=== PATIENT | male | born 1965 | race Caucasian/White ===

== ENCOUNTER 2017-02-01 13:43 | Emergency (ER) | payer BC ==
[~2017-02-01] VITALS: Ht 170.2 cm; Wt 85.3 kg
[2017-02-01 14:43] LABS: CALCIUM 9.1 mg/dL (8.5-10.1); CARBON DIOXIDE 30.8 mmol/L (21-32); CHLORIDE SERUM 100 mmol/L (98-107); GFR1 > 60 mL/min; GLUCOSE SERUM 99 mg/dL (74-106); POTASSIUM SERUM 4.5 mmol/L (3.5-5.1); SODIUM SERUM 136 mmol/L (136-145)
[2017-02-01 14:47] LABS: ALKALINE PHOSPHATASE 73 U/L (46-116); ALT/SGPT 41 U/L (16-63); AST/SGOT 17 U/L (15-37); BILIRUBIN TOTAL 0.9 mg/dL (0.20-1.00); LIPASE 122 IU/L (73-393); TOTAL PROTEIN, SERUM 7.9 g/dL (6.4-8.2)
[2017-02-01 14:58] LABS: BASOPHIL % 0.3 % (0-2); PLATELET COUNT 190 x10^3mcL (130-400); RED CELL DISTRIBUTION WIDTH 13.9 % (11.5-14.5)
[2017-02-01 15:55] VITALS: BP 129/95
== END 2017-02-01 15:55 | disposition home or self-care (01) ==
LOC: ED 13:43
PROVIDERS: Emergency Medicine
DX: K57.90 Diverticulosis of intestine, part unspecified, without perforation or abscess without bleeding (principal); I10 Essential (primary) hypertension
CPT/HCPCS: 36415

== ENCOUNTER 2019-12-21 17:51 | Emergency (ER) | payer BC ==
[~2019-12-21] VITALS: Ht 172.7 cm; Wt 90.3 kg
[2019-12-21 18:02] VITALS: Ht 172.7 cm; Wt 90.3 kg
[2019-12-21 18:48] LABS: CALCIUM 8.8 mg/dL (8.5-10.1); CARBON DIOXIDE 28.4 mmol/L (21-32); CHLORIDE SERUM 105 mmol/L (98-107); GFR1 > 60 mL/min; GLUCOSE SERUM 133 mg/dL (74-106); POTASSIUM SERUM 3.9 mmol/L (3.5-5.1); SODIUM SERUM 135 mmol/L (136-145)
[2019-12-21 18:53] LABS: ALBUMIN 3.9 g/dL (3.4-5.0); ALKALINE PHOSPHATASE 77 U/L (46-116); ALT/SGPT 49 U/L (16-63); BILIRUBIN TOTAL 0.55 mg/dL (0.20-1.00); LIPASE 117 IU/L (73-393); TOTAL PROTEIN, SERUM 7.1 g/dL (6.4-8.2)
[2019-12-21 18:55] LABS: BASOPHIL % 0.2 % (0-2); PLATELET COUNT 185 x10^3mcL (130-400); RED CELL DISTRIBUTION WIDTH 13.8 % (11.5-14.5)
[2019-12-21 19:02] LABS: AST/SGOT 24 U/L (15-37)
[2019-12-21 19:50] LABS: UA SPECIFIC GRAVITY >=1.030 (1.005-1.035); urine erythrocyte NEGATIVE (NEGATIVE)
[2019-12-21 20:04] LABS: microscopic required? YES
[2019-12-21 20:08] VITALS: BP 131/75
== END 2019-12-21 20:08 | disposition home or self-care (01) ==
LOC: ED 17:51
PROVIDERS: Emergency Medicine
DX: M54.5 Low back pain (principal); R25.2 Cramp and spasm; E11.9 Type 2 diabetes mellitus without complications; E78.00 Pure hypercholesterolemia, unspecified; K57.30 Diverticulosis of large intestine without perforation or abscess without bleeding
CPT/HCPCS: J1100; J1885